=== PATIENT | female | born 1960 | race Caucasian/White ===

== ENCOUNTER 2019-06-12 09:02 | Emergency (ER) | payer OTHER ==
[2019-06-12] MEDS ORDERED: fentaNYL 100 MCG/2 ML SDV IVPUSH ONE ×2 (09:34→11:24)
--- NOTE | 2019-06-12 10:09 | EDM.PDOC ---
ED HPI GENERAL MEDICAL PROBLEM - General Chief Complaint: Lower Extremity Injury/Pain Stated Complaint: INJURY VIA TRI Time Seen by Provider: 06/12/19 09:15 Source of Information: Reports: Patient, EMS History Limitations: Reports: No Limitations - History of Present Illness INITIAL COMMENTS - FREE TEXT/NARRATIVE: 58-year-old female with intense left hip pain after a fall. Onset: Sudden Duration: Hour(s): (Within the last 2 hours) Location: Reports: Lower Extremity, Left Associated Symptoms: Reports: No Other Symptoms Left Hip Pain Score (Numeric/FACES): 9 - Related Data Allergies Allergy/AdvReac Type Severity Reaction Status Date / Time No Known Allergies Allergy Verified 06/12/19 09:06 Home Meds: Home Meds Diltiazem [Cardizem] 90 mg PO DAILY 06/12/19 [History] Past Medical History HEENT History: Reports: Impaired Vision Cardiovascular History: Reports: Hypertension Gastrointestinal History: Reports: Other (See Below) Other Gastrointestinal History: loose stools [employer] ANIM[employer] History: Reports: , Spontaneous Musculoskeletal History: Reports: Arthritis Psychiatric History: Reports: Anxiety, Depression - Infectious Disease History Infectious Disease History: Reports: Chicken Pox Social & Family History - Tobacco Use Smoking Status *Q: Never Smoker Second Hand Smoke Exposure: No - Caffeine Use Caffeine Use: Reports: Coffee - Alcohol Use Days Per Week of Alcohol Use: 2 Number of Drinks Per Day: 2 Total Drinks Per Week: 4 - Recreational Drug Use Recreational Drug Use: No Review of Systems - Review of Systems Review Of Systems: See Below Constitutional: Denies: Fever Respiratory: Denies: Shortness of Breath Cardiovascular: Denies: Chest Pain GI/Abdominal: Denies: Abdominal Pain Skin: Denies: Pallor Neurological: Denies: Headache ED EXAM, GENERAL - Physical Exam Exam: See Below Exam Limited By: No Limitations General Appearance: Alert, Moderate Distress (Very uncomfortable with any attempted movement of the left hip) Eye Exam: Bilateral Eye: Normal Inspection Head: Atraumatic Neck: Non-Tender Respiratory/Chest: No Respiratory Distress, Lungs Clear Cardiovascular: Regular Rate, Rhythm GI/Abdominal: Non-Tender Extremities: Other (No pelvic tenderness to palpation, no groin tenderness in the proximal left hip is mildly tender to palpation. She is exquisitely tender to any attempt at passive range of motion of the left hip. Distal pulses are intact.) Neurological: Alert, Oriented Course - Vital Signs Last Recorded V/S: Last Vital Signs Temp 96.9 F 06/12/19 09:06 Pulse 69 06/12/19 09:06 Resp 16 06/12/19 09:06 BP 144/62 H 06/12/19 09:06 Pulse Ox 98 06/12/19 09:06 - Orders/Labs/Meds Meds: Medications Discontinued Medications Generic Name Dose Route Start Last Admin Trade Name Camilo PRN Reason Stop Dose Admin Diazepam 5 mg 06/12/19 10:09 06/12/19 10:26 Valium IVPUSH 06/12/19 10:10 5 mg ONETIME ONE Administration Diazepam 5 mg 06/12/19 11:26 06/12/19 11:36 Valium IVPUSH 06/12/19 11:27 5 mg ONETIME ONE Administration Fentanyl 100 mcg 06/12/19 09:34 06/12/19 09:39 Sublimaze IVPUSH 06/12/19 09:35 100 mcg ONETIME ONE Administration Fentanyl 100 mcg 06/12/19 11:24 06/12/19 11:29 Sublimaze IVPUSH 06/12/19 11:25 100 mcg ONETIME ONE Administration - Re-Assessments/Exams Free Text/Narrative Re-Assessment/Exam: 06/12/19 10:24 Patient needed 100 g of fentanyl IV additional to the EMS dose before x-rays were obtained. This showed a subcapsular femoral neck fracture. She was then given 5 mg of IV Valium for muscle spasm control. Dr. Ansari from [facility] kindly accepted the patient in transfer for orthopedic assessment and likely repair of a left hip fracture. 06/12/19 11:28 Prior to discharge the patient's pain increased, another 100 g of fentanyl and 5 mg of IV Valium was given. Departure - Departure Time of Disposition: 12:35 Disposition: DC/Tfer to Other 70 Clinical Impression: Left displaced femoral neck fracture - Discharge Information Referrals: PCP,None [Primary Care Provider] - Forms: ED Department Discharge Care Plan Goals: Patient is to be transferred by EMS to [facility] for orthopedic assessment and repair of a left femoral neck fracture.
--- NOTE | 2019-06-12 10:31 | CRLCR ---
INDICATION: Trauma, pain, fall TECHNIQUE: AP and frog-leg lateral left hip radiographs COMPARISON: None FINDINGS: There is an acute left femoral neck fracture. No other fracture and no dislocation/malalignment is seen. IMPRESSION: Acute left femoral neck fracture. Dictated by Scar Richter MD @ Jun 12 2019 10:26AM Signed by Dr. Scar Richter @ Jun 12 2019 10:29AM
== END 2019-06-12 12:35 | disposition other institution (70) ==
LOC: JP.ED 09:02
DX: S72.012A Unspecified intracapsular fracture of left femur, initial encounter for closed fracture (principal); I10 Essential (primary) hypertension; Z79.899 Other long term (current) drug therapy; W18.39XA Other fall on same level, initial encounter
CPT/HCPCS: 73502; 96374; 96375; 96376; 99284; J3010; J3360